=== PATIENT | male | born 1985 | race Caucasian/White ===

== ENCOUNTER 2017-09-23 18:39 | Inpatient (IN) ==
[2017-09-23] MEDS ORDERED: ACETAMINOPHEN 500 MG TABLET ONE (19:41)
[2017-09-23] MEDS ORDERED: ACETAMINOPHEN 500 MG TABLET PO STA (19:44)
[2017-09-23] MEDS ORDERED: SODIUM CHLORIDE 0.9% 1,000 ML IV STA (20:05)
[2017-09-23] MEDS ORDERED: ONDANSETRON 4 MG/2 ML VIAL IV STA (20:05)
[2017-09-23 21:01] LABS: Hemoglobin 12.1 GM/DL (14.0-18.0)
[2017-09-23 21:12] LABS: Hematocrit 34.5 VOL% (42.0-52.0); Immature Granulocytes % 2.7 %; Immature Granulocytes Absolute 0.03 #; Lymphocytes # 0.6 10*3/uL (1.4-4.0); Lymphocytes % 52.7 % (21.2-54.2); Mean Corpuscular HGB Conc 35.1 GM/DL (32-36); Mean Corpuscular Hemoglobin 30 PG (27-34); Mean Corpuscular Volume 84.8 FL (87-102); Mean Platelet Volume 10.6 FL (9.6-12.0); Monocytes # 0.5 10*3/uL (0.11-0.8); Monocytes % 42.7 % (1.7-12.7); Neutrophils % 1.9 % (38.7-73.9); Red Blood Count 4.07 MC/CUMM (3.8-5.5); Red Cell Distribution Width 11.3 % (9.3-17.3)
[2017-09-23 21:14] LABS: Platelet Count 123 T/CUMM (130-400); White Blood Count 1.1 T/CUMM (4-12)
[2017-09-23 21:16] LABS: INR 1.2; PT Patient Result 12.6 SECS; Partial Thromboplastin Time 32.1 SECS (0-40)
[2017-09-23 21:23] LABS: Albumin 3.8 G/DL (3.4-5.0); Bilirubin,Total 0.5 MG/DL (0.2-1.0); Calcium 8.9 MG/DL (8.5-10.1); Lactic Acid 0.9 MMOL/L (0.4-2.0); Osmolality,Calculated 274.5 MOS/KG (273-304); Potassium 3.5 MMOL/L (3.5-5.1); Total Protein 7.3 G/DL (6.4-8.3)
[2017-09-23 21:25] LABS: Troponin I Only 0.073 NG/ML (0.00-0.045)
[2017-09-23 21:27] LABS: Apearance,Urine CLEAR (Clear); Bacteria,Urine Occasional /HPF (Few); Bilirubin,Urine Negative (Negative); Blood, Urine Small mg/dL (Negative); Glucose,Urine (UA) Negative (Negative); Ketones,Urine Negative (Negative); Mucus,Urine Occasional /LPF (Occasional); Nitrite,Urine Negative (Negative); Protein,Urine 30 MG/DL; RBC,Urine 3 /HPF (0-4); Urine Color Yellow (Yellow); Urine Specific Gravity 1.016 (1.001-1.035); Urine Urobilinogen < 2.0 EU/DL (0.2-1.0); WBC,Urine 1 /HPF (0-6)
[2017-09-23 21:38] LABS: Giant Platelets Few; Platelet Estimate Decreased; Total Cells Counted 100
[2017-09-23 21:39] LABS: Hypochromasia 2+
[2017-09-23 21:40] LABS: Atypical Lymphocytes 2+; Reactive Lymphocytes 2+
[2017-09-23 21:41] LABS: Anisocytosis Slight; Microcytosis Slight; Ovalocytes Few
[2017-09-24] MEDS ORDERED: MORPHINE 4 MG/1 ML VIAL IV PRN (05:21)
[2017-09-24] MEDS ORDERED: ONDANSETRON 4 MG/2 ML VIAL IV PRN ×2 (05:21→11:49)
[2017-09-24] MEDS ORDERED: ACETAMINOPHEN 325 MG TABLET PO PRN (05:21)
[2017-09-24] MEDS: SODIUM CHLORIDE 0.9% 1,000 ML IV SCH ×3 (06:22→15:09)
[2017-09-24] MEDS: CEFEPIME 2,000 MG in SYRINGE 1 EACH IV SCH ×3 (06:45→22:00)
[2017-09-24 07:23] LABS: Band Neutrophils 0 % (0-10); Lymphocytes 40 % (20-55); Segmented Neutrophils 6 % (50-85)
[2017-09-24] MEDS: PANTOPRAZOLE 40 MG TABLET PO SCH (08:40)
[2017-09-24] MEDS: FILGRASTIM-SNDZ 480 MCG/0.8 ML SYRINGE SUBCUT SCH (09:30)
[2017-09-24] MEDS ORDERED: MYLANTA/LIDO VISC/DIPH 300 ML BOTTLE SWISH/SWAL PRN (09:35)
[2017-09-24] MEDS ORDERED: chlorproMAZINE 25 MG TABLET PO PRN (11:49)
[2017-09-24] MEDS ORDERED: ALUMINUM/MAGNES/SIMETH MAX STR 30 ML UDCUP PO PRN (11:49)
[2017-09-24] MEDS ORDERED: guaiFENesin 200 MG/10 ML UDCUP PO PRN (11:49)
[2017-09-24] MEDS ORDERED: chlorproMAZINE INJ 25 MG in SODIUM CHLORIDE 0.9% 100 ML IV PRN (11:49)
[2017-09-24] MEDS ORDERED: LACTULOSE 20 GM/30 ML UDCUP PO PRN (11:49)
[2017-09-24] MEDS ORDERED: BENZTROPINE 2 MG/2 ML AMP IV PRN (11:49)
[2017-09-24] MEDS ORDERED: ALPRAZolam 0.25 MG TABLET PO PRN (11:49)
[2017-09-24] MEDS ORDERED: diphenhydrAMINE CAP 25 MG CAPSULE PO PRN (11:49)
[2017-09-24] MEDS ORDERED: MYLANTA/LIDO VISC 2:1 300 ML BOTTLE SWISH/SWAL PRN (11:49)
[2017-09-24] MEDS ORDERED: TEMAZEPAM 7.5 MG CAPSULE PO PRN (11:49)
[2017-09-24] MEDS ORDERED: MYLANTA/LIDO VISC 2:1 300 ML BOTTLE SWISH/SPIT PRN (11:49)
[2017-09-24] MEDS ORDERED: traMADol 50 MG TABLET PO PRN (11:49)
[2017-09-24] MEDS ORDERED: LOPERAMIDE 2 MG CAPSULE PO PRN ×2 (11:49)
[2017-09-24] MEDS ORDERED: MAGNESIUM HYDROXIDE SUSP 30 ML UDCUP PO PRN (11:49)
[2017-09-24] MEDS ORDERED: chlorproMAZINE INJ 50 MG in SODIUM CHLORIDE 0.9% 100 ML IV PRN (11:49)
[2017-09-24] MEDS ORDERED: PROMETHAZINE INJ 25 MG in SODIUM CHLORIDE 0.9% 50 ML IV PRN (11:49)
[2017-09-24] MEDS: ACETAMINOPHEN 325 MG TABLET PO PRN ×2 (12:00→21:57)
[2017-09-25] MEDS: SODIUM CHLORIDE 0.9% 1,000 ML IV SCH ×5 (00:26→17:44)
[2017-09-25] MEDS: CEFEPIME 2,000 MG in SYRINGE 1 EACH IV SCH ×3 (05:42→22:15)
[2017-09-25 06:20] LABS: Basophils % 1.1 % (0.0-0.8); Eosinophils % 0.4 % (0.00-10.9); Hematocrit 32.9 VOL% (42.0-52.0); Hemoglobin 11.6 GM/DL (14.0-18.0); Immature Granulocytes Absolute 0.08 #; Lymphocytes # 0.7 10*3/uL (1.4-4.0); Lymphocytes % 26.2 % (21.2-54.2); Mean Corpuscular HGB Conc 35.3 GM/DL (32-36); Mean Corpuscular Hemoglobin 30 PG (27-34); Mean Corpuscular Volume 83.9 FL (87-102); Mean Platelet Volume 10.4 FL (9.6-12.0); Monocytes # 0.9 10*3/uL (0.11-0.8); Monocytes % 33.1 % (1.7-12.7); NRBC # 0.02 10*3/uL; Neutrophils % 36.2 % (38.7-73.9); Platelet Count 107 T/CUMM (130-400); Red Blood Count 3.92 MC/CUMM (3.8-5.5); Red Cell Distribution Width 11.8 % (9.3-17.3); White Blood Count 2.6 T/CUMM (4-12)
[2017-09-25 06:43] LABS: Calcium 8.5 MG/DL (8.5-10.1); Potassium 3.8 MMOL/L (3.5-5.1)
[2017-09-25 06:53] LABS: Atypical Lymphocytes Moderate; Band Neutrophils 11 % (0-10); Eosinophils 1 % (0-10); Hypochromasia Slight; Lymphocytes 35 % (20-55); Platelet Estimate Decreased; Segmented Neutrophils 13 % (50-85); Total Cells Counted 100
[2017-09-25] MEDS: PANTOPRAZOLE 40 MG TABLET PO SCH (08:48)
[2017-09-25] MEDS: FILGRASTIM-SNDZ 480 MCG/0.8 ML SYRINGE SUBCUT SCH (08:48)
[2017-09-26] MEDS: SODIUM CHLORIDE 0.9% 1,000 ML IV SCH ×3 (01:54→13:14)
[2017-09-26 04:32] LABS: Basophils % 0.3 % (0.0-0.8); Eosinophils % 0.4 % (0.00-10.9); Hematocrit 31.8 VOL% (42.0-52.0); Hemoglobin 10.9 GM/DL (14.0-18.0); Immature Granulocytes % 7.2 %; Lymphocytes # 1.1 10*3/uL (1.4-4.0); Lymphocytes % 15.3 % (21.2-54.2); Mean Corpuscular HGB Conc 34.3 GM/DL (32-36); Mean Corpuscular Hemoglobin 30 PG (27-34); Mean Corpuscular Volume 86.4 FL (87-102); Mean Platelet Volume 10.4 FL (9.6-12.0); Monocytes # 1.2 10*3/uL (0.11-0.8); Monocytes % 17.6 % (1.7-12.7); NRBC # 0.03 10*3/uL; Neutrophils # 4.1 10*3/uL (1.4-7.4); Neutrophils % 59.2 % (38.7-73.9); Platelet Count 148 T/CUMM (130-400); Red Blood Count 3.68 MC/CUMM (3.8-5.5); White Blood Count 6.9 T/CUMM (4-12)
[2017-09-26 04:42] LABS: Calcium 8.1 MG/DL (8.5-10.1); Osmolality,Calculated 281.8 MOS/KG (273-304); Potassium 3.7 MMOL/L (3.5-5.1)
[2017-09-26 05:40] LABS: Band Neutrophils 6 % (0-10); Eosinophils 1 % (0-10); Lymphocytes 19 % (20-55); Platelet Estimate Normal; Segmented Neutrophils 62 % (50-85); Total Cells Counted 100
[2017-09-26] MEDS: CEFEPIME 2,000 MG in SYRINGE 1 EACH IV SCH ×2 (05:40→14:55)
[2017-09-26 05:41] LABS: Burr Cells Slight; Polychromasia Few
[2017-09-26] MEDS: PANTOPRAZOLE 40 MG TABLET PO SCH (08:40)
[2017-09-26] MEDS: FILGRASTIM-SNDZ 480 MCG/0.8 ML SYRINGE SUBCUT SCH (08:44)
[2017-09-26 12:11] VITALS: BP 106/62
== END 2017-09-26 15:38 | disposition home or self-care (01) | DRG 809 ==
LOC: N.EDINP 18:39 → N.ED 18:39 → N.4E 09-24 04:44 → SUATTDRO 09-25 14:45
PROVIDERS: ADMIT Internal Medicine; ATTEND Internal Medicine Infectious Disease

== ENCOUNTER 2017-10-15 21:06 | Inpatient (IN) ==
[2017-10-15] MEDS ORDERED: cefTRIAXone 1,000 MG in SODIUM CHLORIDE 0.9% 100 ML IV STA (22:11)
[2017-10-15] MEDS ORDERED: SODIUM CHLORIDE 0.9% 500 ML IV STA (22:11)
[2017-10-15] MEDS ORDERED: ACETAMINOPHEN 500 MG TABLET PO STA (22:11)
[2017-10-15 23:05] LABS: Basophils % 3.3 % (0.0-0.8); Eosinophils % 1.7 % (0.00-10.9); Hematocrit 24.2 VOL% (42.0-52.0); Hemoglobin 8.5 GM/DL (14.0-18.0); Lymphocytes # 0.4 10*3/uL (1.4-4.0); Lymphocytes % 61.7 % (21.2-54.2); Mean Corpuscular HGB Conc 35.1 GM/DL (32-36); Mean Corpuscular Hemoglobin 31 PG (27-34); Mean Corpuscular Volume 86.7 FL (87-102); Mean Platelet Volume 11.4 FL (9.6-12.0); Monocytes # 0.1 10*3/uL (0.11-0.8); Monocytes % 21.7 % (1.7-12.7); Neutrophils # 0.1 10*3/uL (1.4-7.4); Neutrophils % 11.6 % (38.7-73.9); Platelet Count 85 T/CUMM (130-400); Red Blood Count 2.79 MC/CUMM (3.8-5.5); Red Cell Distribution Width 12.5 % (9.3-17.3)
[2017-10-15 23:09] LABS: White Blood Count 0.6 T/CUMM (4-12)
[2017-10-15 23:11] LABS: INR 1.1
[2017-10-15 23:40] LABS: Albumin 3.9 G/DL (3.4-5.0); Bilirubin,Total 1.2 MG/DL (0.2-1.0); Calcium 8.8 MG/DL (8.5-10.1); Osmolality,Calculated 269.1 MOS/KG (273-304); Potassium 3.9 MMOL/L (3.5-5.1); Total Protein 7.5 G/DL (6.4-8.3)
[2017-10-15 23:53] LABS: Apearance,Urine CLEAR (Clear); Bilirubin,Urine Negative (Negative); Blood, Urine Negative (Negative); Glucose,Urine (UA) Negative (Negative); Ketones,Urine Negative (Negative); Nitrite,Urine Negative (Negative); Protein,Urine Negative; Urine Color Straw (Yellow); Urine Specific Gravity 1.005 (1.001-1.035); Urine Urobilinogen < 2.0 EU/DL (0.2-1.0); WBC,Urine <1 /HPF (0-6)
[2017-10-16] MEDS ORDERED: FILGRASTIM-SNDZ 480 MCG/0.8 ML SYRINGE SUBCUT ONE (00:21)
[2017-10-16] MEDS ORDERED: LEVOFLOXACIN INJ 500 MG in PREMIX 1 EACH IV STA (00:21)
[2017-10-16] MEDS ORDERED: FLUCONAZOLE INJ 100 MG in IV BAG 1 EACH IV ONE (00:21)
[2017-10-16] MEDS ORDERED: ALPRAZolam 0.25 MG TABLET PO PRN ×2 (01:10)
[2017-10-16] MEDS ORDERED: diphenhydrAMINE CAP 25 MG CAPSULE PO PRN (01:10)
[2017-10-16] MEDS ORDERED: MYLANTA/LIDO VISC 2:1 300 ML BOTTLE SWISH/SWAL PRN (01:10)
[2017-10-16] MEDS ORDERED: PROMETHAZINE 25 MG TABLET PO PRN (01:10)
[2017-10-16] MEDS ORDERED: ALUMINUM/MAGNES/SIMETH MAX STR 30 ML UDCUP PO PRN (01:10)
[2017-10-16] MEDS ORDERED: guaiFENesin 200 MG/10 ML UDCUP PO PRN (01:10)
[2017-10-16] MEDS ORDERED: PROMETHAZINE INJ 25 MG in SODIUM CHLORIDE 0.9% 50 ML IV PRN (01:10)
[2017-10-16] MEDS ORDERED: TEMAZEPAM 7.5 MG CAPSULE PO PRN (01:10)
[2017-10-16] MEDS ORDERED: LACTULOSE 20 GM/30 ML UDCUP PO PRN (01:10)
[2017-10-16] MEDS ORDERED: ONDANSETRON 4 MG TABLET PO PRN (01:10)
[2017-10-16] MEDS ORDERED: MAGNESIUM HYDROXIDE SUSP 30 ML UDCUP PO PRN (01:10)
[2017-10-16] MEDS ORDERED: traMADol 50 MG TABLET PO PRN (01:10)
[2017-10-16] MEDS ORDERED: ONDANSETRON 4 MG/2 ML VIAL IV PRN (01:10)
[2017-10-16] MEDS: AMOXICILLIN/CLAV 500 MG TABLET PO SCH ×2 (01:47→09:24)
[2017-10-16] MEDS: SODIUM CHLORIDE 0.9% 1,000 ML IV SCH ×3 (01:48→23:58)
[2017-10-16] MEDS: FLUCONAZOLE INJ 100 MG in IV BAG 1 EACH IV SCH (02:01)
[2017-10-16 02:04] LABS: Lymphocytes 57 % (20-55); Segmented Neutrophils 10 % (50-85)
[2017-10-16 02:05] LABS: Microcytosis 2+; Ovalocytes 2+
[2017-10-16 02:06] LABS: Hypochromasia 1+; Platelet Estimate Decreased
[2017-10-16 02:07] LABS: Total Cells Counted 101
[2017-10-16 02:17] LABS: Basophils % 2.1 % (0.0-0.8); Eosinophils % 2.1 % (0.00-10.9); Hematocrit 25.9 VOL% (42.0-52.0); Hemoglobin 9.3 GM/DL (14.0-18.0); Lymphocytes # 0.3 10*3/uL (1.4-4.0); Lymphocytes % 68.1 % (21.2-54.2); Mean Corpuscular HGB Conc 35.9 GM/DL (32-36); Mean Corpuscular Hemoglobin 32 PG (27-34); Mean Corpuscular Volume 88.4 FL (87-102); Mean Platelet Volume 11.2 FL (9.6-12.0); Monocytes # 0.1 10*3/uL (0.11-0.8); Monocytes % 19.1 % (1.7-12.7); Neutrophils % 8.6 % (38.7-73.9); Red Blood Count 2.93 MC/CUMM (3.8-5.5); Red Cell Distribution Width 12.5 % (9.3-17.3)
[2017-10-16 02:20] LABS: Platelet Count 66 T/CUMM (130-400)
[2017-10-16 02:21] LABS: White Blood Count 0.5 T/CUMM (4-12)
[2017-10-16 02:45] LABS: Albumin 3.5 G/DL (3.4-5.0); Bilirubin,Total 0.8 MG/DL (0.2-1.0); Calcium 8.2 MG/DL (8.5-10.1); Osmolality,Calculated 271.8 MOS/KG (273-304); Potassium 3.9 MMOL/L (3.5-5.1)
[2017-10-16 02:55] LABS: Uric Acid 4.7 MG/DL (3.5-7.2)
[2017-10-16] MEDS: ACETAMINOPHEN 325 MG TABLET PO PRN ×3 (07:43→17:52)
[2017-10-16 08:11] LABS: Hypochromasia Slight; Lymphocytes 74 % (20-55); Microcytosis Slight; Platelet Estimate Decreased; Promyelocytes 2 %; Segmented Neutrophils 8 % (50-85); Total Cells Counted 100
[2017-10-16] MEDS ORDERED: GRAPE SEED PO SCH (09:00)
[2017-10-16] MEDS ORDERED: [UNRECOGNIZED DRUG - OTHER] PO SCH (09:00)
[2017-10-16] MEDS ORDERED: NYSTATIN 500,000 UNIT/5 ML UDCUP SWISH/SWAL SCH (09:00)
[2017-10-16] MEDS ORDERED: CELERY PO SCH (09:00)
[2017-10-16] MEDS ORDERED: Cinnamon Bark [Cinnamon] 500 MG PO SCH (09:00)
[2017-10-16] MEDS ORDERED: SOURCHERRY PO SCH (09:00)
[2017-10-16] MEDS: MULTIVITAMIN (CENTRUM) TABLET PO SCH (09:24)
[2017-10-16] MEDS: FILGRASTIM-SNDZ 480 MCG/0.8 ML SYRINGE SUBCUT SCH (09:25)
[2017-10-16] MEDS ORDERED: SODIUM CHLORIDE 0.9% 1,000 ML IV ONE (09:43)
[2017-10-16] MEDS: NYSTATIN 500,000 UNIT/5 ML UDCUP SWISH/SWAL SCH ×4 (10:51→20:09)
[2017-10-16] MEDS: CEFEPIME 2,000 MG in SYRINGE 1 EACH IV SCH ×2 (12:05→17:47)
[2017-10-16] MEDS: ACYCLOVIR INJ 1,000 MG in SODIUM CHLORIDE 0.9% 250 ML IV SCH ×2 (12:10→18:39)
[2017-10-16] MEDS: MYLANTA/LIDO VISC 2:1 300 ML BOTTLE SWISH/SPIT PRN (18:40)
[2017-10-16] MEDS ORDERED: cefTRIAXone 1,000 MG in SYRINGE 1 EACH IV SCH (22:00)
[2017-10-17] MEDS: FLUCONAZOLE INJ 100 MG in IV BAG 1 EACH IV SCH (01:47)
[2017-10-17] MEDS: CEFEPIME 2,000 MG in SYRINGE 1 EACH IV SCH ×3 (02:48→18:35)
[2017-10-17] MEDS: ACYCLOVIR INJ 1,000 MG in SODIUM CHLORIDE 0.9% 250 ML IV SCH ×3 (03:08→18:35)
[2017-10-17] MEDS: MULTIVITAMIN (CENTRUM) TABLET PO SCH (08:40)
[2017-10-17] MEDS: NYSTATIN 500,000 UNIT/5 ML UDCUP SWISH/SWAL SCH ×4 (08:40→20:51)
[2017-10-17] MEDS: FILGRASTIM-SNDZ 480 MCG/0.8 ML SYRINGE SUBCUT SCH (08:41)
[2017-10-17] MEDS: SODIUM CHLORIDE 0.9% 1,000 ML IV SCH ×3 (08:43→16:51)
[2017-10-17] MEDS: MYLANTA/LIDO VISC 2:1 300 ML BOTTLE SWISH/SPIT PRN ×2 (08:45→13:06)
[2017-10-17 10:45] LABS: Basophils % 1.2 % (0.0-0.8); Hematocrit 26.7 VOL% (42.0-52.0); Hemoglobin 9.2 GM/DL (14.0-18.0); Immature Granulocytes % 2.5 %; Immature Granulocytes Absolute 0.02 #; Lymphocytes # 0.3 10*3/uL (1.4-4.0); Lymphocytes % 33.3 % (21.2-54.2); Mean Corpuscular HGB Conc 34.5 GM/DL (32-36); Mean Corpuscular Hemoglobin 30 PG (27-34); Mean Corpuscular Volume 85.6 FL (87-102); Mean Platelet Volume 11.3 FL (9.6-12.0); Monocytes # 0.2 10*3/uL (0.11-0.8); Monocytes % 28.4 % (1.7-12.7); Neutrophils # 0.3 10*3/uL (1.4-7.4); Neutrophils % 34.6 % (38.7-73.9); Platelet Count 41 T/CUMM (130-400); Red Blood Count 3.12 MC/CUMM (3.8-5.5); Red Cell Distribution Width 12.5 % (9.3-17.3)
[2017-10-17 10:49] LABS: White Blood Count 0.8 T/CUMM (4-12)
[2017-10-17 11:06] LABS: Calcium 8.7 MG/DL (8.5-10.1); Potassium 3.6 MMOL/L (3.5-5.1)
[2017-10-17] MEDS ORDERED: IBUPROFEN 200 MG TABLET PO PRN (13:01)
[2017-10-17 13:28] LABS: Band Neutrophils 17 % (0-10); Hypochromasia 1+; Lymphocytes 40 % (20-55); Segmented Neutrophils 13 % (50-85); Total Cells Counted 100
[2017-10-17 13:29] LABS: Platelet Estimate Decreased
[2017-10-17] MEDS: VANCOMYCIN INJ 1,500 MG in SODIUM CHLORIDE 0.9% 500 ML IV SCH ×2 (14:23→20:51)
[2017-10-18] MEDS: CEFEPIME 2,000 MG in SYRINGE 1 EACH IV SCH ×3 (03:17→18:38)
[2017-10-18] MEDS: FLUCONAZOLE INJ 100 MG in IV BAG 1 EACH IV SCH (03:19)
[2017-10-18] MEDS: ACYCLOVIR INJ 1,000 MG in SODIUM CHLORIDE 0.9% 250 ML IV SCH ×3 (04:00→18:38)
[2017-10-18] MEDS: SODIUM CHLORIDE 0.9% 1,000 ML IV SCH ×2 (04:01→08:30)
[2017-10-18 04:45] LABS: Basophils % 0.9 % (0.0-0.8); Eosinophils % 0.9 % (0.00-10.9); Hematocrit 24.6 VOL% (42.0-52.0); Hemoglobin 8.4 GM/DL (14.0-18.0); Immature Granulocytes % 12.7 %; Immature Granulocytes Absolute 0.28 #; Lymphocytes # 0.4 10*3/uL (1.4-4.0); Mean Corpuscular HGB Conc 34.1 GM/DL (32-36); Mean Corpuscular Hemoglobin 29 PG (27-34); Mean Corpuscular Volume 85.7 FL (87-102); Mean Platelet Volume 12.1 FL (9.6-12.0); Monocytes # 0.5 10*3/uL (0.11-0.8); Monocytes % 20.9 % (1.7-12.7); NRBC # 0.04 10*3/uL; Neutrophils % 44.6 % (38.7-73.9); Red Blood Count 2.87 MC/CUMM (3.8-5.5); Red Cell Distribution Width 12.6 % (9.3-17.3); White Blood Count 2.2 T/CUMM (4-12)
[2017-10-18 04:48] LABS: Platelet Count 31 T/CUMM (130-400)
[2017-10-18 05:08] LABS: Calcium 8.3 MG/DL (8.5-10.1); Osmolality,Calculated 274.4 MOS/KG (273-304); Potassium 3.7 MMOL/L (3.5-5.1)
[2017-10-18 05:17] LABS: Band Neutrophils 8 % (0-10); Eosinophils 1 % (0-10); Hypochromasia 1+; Lymphocytes 21 % (20-55); Nucleated Red Blood Cells 1 (0-5); Ovalocytes Slight; Platelet Estimate Decreased; Segmented Neutrophils 48 % (50-85); Total Cells Counted 100
[2017-10-18 05:18] LABS: Atypical Lymphocytes Few
[2017-10-18] MEDS: VANCOMYCIN INJ 1,500 MG in SODIUM CHLORIDE 0.9% 500 ML IV SCH ×3 (06:07→21:26)
[2017-10-18] MEDS: FILGRASTIM-SNDZ 480 MCG/0.8 ML SYRINGE SUBCUT SCH (09:02)
[2017-10-18] MEDS: MULTIVITAMIN (CENTRUM) TABLET PO SCH (09:03)
[2017-10-18] MEDS: NYSTATIN 500,000 UNIT/5 ML UDCUP SWISH/SWAL SCH ×4 (09:04→21:26)
[2017-10-19] MEDS: CEFEPIME 2,000 MG in SYRINGE 1 EACH IV SCH (02:06)
[2017-10-19] MEDS: FLUCONAZOLE INJ 100 MG in IV BAG 1 EACH IV SCH (02:10)
[2017-10-19] MEDS: ACYCLOVIR INJ 1,000 MG in SODIUM CHLORIDE 0.9% 250 ML IV SCH ×3 (03:25→21:29)
[2017-10-19 04:03] LABS: Basophils # 0.1 10*3/uL (0.0-0.2); Basophils % 1.2 % (0.0-0.8); Eosinophils % 0.5 % (0.00-10.9); Hematocrit 24.7 VOL% (42.0-52.0); Hemoglobin 8.7 GM/DL (14.0-18.0); Immature Granulocytes % 20.6 %; Immature Granulocytes Absolute 1.52 #; Lymphocytes # 0.6 10*3/uL (1.4-4.0); Lymphocytes % 8.4 % (21.2-54.2); Mean Corpuscular HGB Conc 35.2 GM/DL (32-36); Mean Corpuscular Hemoglobin 30 PG (27-34); Mean Corpuscular Volume 83.7 FL (87-102); Mean Platelet Volume 11.8 FL (9.6-12.0); Monocytes # 0.9 10*3/uL (0.11-0.8); Monocytes % 12.2 % (1.7-12.7); NRBC # 0.06 10*3/uL; Neutrophils # 4.2 10*3/uL (1.4-7.4); Neutrophils % 57.1 % (38.7-73.9); Red Blood Count 2.95 MC/CUMM (3.8-5.5); Red Cell Distribution Width 12.8 % (9.3-17.3); White Blood Count 7.4 T/CUMM (4-12)
[2017-10-19 04:11] LABS: Platelet Count 35 T/CUMM (130-400)
[2017-10-19 04:52] LABS: Band Neutrophils 20 % (0-10); Lymphocytes 12 % (20-55); Metamyelocytes 3 %; Myelocytes 1 %; Nucleated Red Blood Cells 1 (0-5); Platelet Estimate Decreased; Polychromasia Slight; Segmented Neutrophils 59 % (50-85); Total Cells Counted 100; Toxic Granulation 1+
[2017-10-19 05:51] LABS: Potassium 3.8 MMOL/L (3.5-5.1)
[2017-10-19 05:53] LABS: Calcium 8.6 MG/DL (8.5-10.1)
[2017-10-19] MEDS: VANCOMYCIN INJ 1,500 MG in SODIUM CHLORIDE 0.9% 500 ML IV SCH ×2 (05:53→14:58)
[2017-10-19 05:54] LABS: Osmolality,Calculated 282.8 MOS/KG (273-304)
[2017-10-19] MEDS: SODIUM CHLORIDE 0.9% 1,000 ML IV SCH ×2 (09:07→21:35)
[2017-10-19] MEDS: MULTIVITAMIN (CENTRUM) TABLET PO SCH (09:16)
[2017-10-19] MEDS: NYSTATIN 500,000 UNIT/5 ML UDCUP SWISH/SWAL SCH ×4 (09:16→21:29)
[2017-10-20] MEDS: VANCOMYCIN INJ 1,500 MG in SODIUM CHLORIDE 0.9% 500 ML IV SCH ×3 (00:17→13:15)
[2017-10-20] MEDS: ACYCLOVIR INJ 1,000 MG in SODIUM CHLORIDE 0.9% 250 ML IV SCH ×2 (04:08→10:59)
[2017-10-20 06:26] LABS: Basophils # 0.1 10*3/uL (0.0-0.2); Basophils % 0.5 % (0.0-0.8); Eosinophils # 0.1 10*3/uL (0.0-0.87); Eosinophils % 0.6 % (0.00-10.9); Hematocrit 24.2 VOL% (42.0-52.0); Hemoglobin 8.3 GM/DL (14.0-18.0); Immature Granulocytes % 21.6 %; Immature Granulocytes Absolute 2.06 #; Lymphocytes # 0.7 10*3/uL (1.4-4.0); Mean Corpuscular HGB Conc 34.3 GM/DL (32-36); Mean Corpuscular Hemoglobin 30 PG (27-34); Mean Platelet Volume 11.7 FL (9.6-12.0); Monocytes # 0.9 10*3/uL (0.11-0.8); Monocytes % 9.9 % (1.7-12.7); NRBC # 0.05 10*3/uL; Neutrophils # 5.8 10*3/uL (1.4-7.4); Neutrophils % 60.4 % (38.7-73.9); Red Blood Count 2.75 MC/CUMM (3.8-5.5); Red Cell Distribution Width 13.3 % (9.3-17.3); White Blood Count 9.5 T/CUMM (4-12)
[2017-10-20 06:33] LABS: Platelet Count 37 T/CUMM (130-400)
[2017-10-20 06:48] LABS: Calcium 8.2 MG/DL (8.5-10.1); Osmolality,Calculated 286.6 MOS/KG (273-304); Potassium 3.4 MMOL/L (3.5-5.1)
[2017-10-20 07:09] LABS: Anisocytosis Slight; Band Neutrophils 13 % (0-10); Lymphocytes 13 % (20-55); Platelet Estimate Decreased; Segmented Neutrophils 62 % (50-85); Total Cells Counted 100
[2017-10-20 07:10] LABS: Microcytosis Slight
[2017-10-20] MEDS: SODIUM CHLORIDE 0.9% 1,000 ML IV SCH (07:20)
[2017-10-20] MEDS: MULTIVITAMIN (CENTRUM) TABLET PO SCH (08:04)
[2017-10-20] MEDS: NYSTATIN 500,000 UNIT/5 ML UDCUP SWISH/SWAL SCH ×4 (08:05→21:02)
[2017-10-20] MEDS: SODIUM CHLOR 0.45% KCL 20 MEQ 20 MEQ/1,000 ML BAG IV SCH (08:40)
[2017-10-20] MEDS: cefTRIAXone 2,000 MG in SYRINGE 1 EACH IV SCH (16:35)
[2017-10-20] MEDS: valACYclovir 500 MG TABLET PO SCH (21:02)
[2017-10-21 05:24] LABS: Basophils % 0.5 % (0.0-0.8); Eosinophils % 0.6 % (0.00-10.9); Hemoglobin 8.5 GM/DL (14.0-18.0); Immature Granulocytes % 18.9 %; Immature Granulocytes Absolute 1.21 #; Lymphocytes # 0.8 10*3/uL (1.4-4.0); Lymphocytes % 11.9 % (21.2-54.2); Mean Corpuscular HGB Conc 35.4 GM/DL (32-36); Mean Corpuscular Hemoglobin 31 PG (27-34); Mean Corpuscular Volume 88.6 FL (87-102); Mean Platelet Volume 11.8 FL (9.6-12.0); Monocytes # 0.6 10*3/uL (0.11-0.8); NRBC # 0.04 10*3/uL; Neutrophils # 3.7 10*3/uL (1.4-7.4); Neutrophils % 58.1 % (38.7-73.9); Platelet Count 40 T/CUMM (130-400); Red Blood Count 2.71 MC/CUMM (3.8-5.5); Red Cell Distribution Width 13.6 % (9.3-17.3); White Blood Count 6.4 T/CUMM (4-12)
[2017-10-21 05:48] LABS: Band Neutrophils 5 % (0-10); Eosinophils 1 % (0-10); Lymphocytes 11 % (20-55); Metamyelocytes 3 %; Myelocytes 1 %; Nucleated Red Blood Cells 1 (0-5); Segmented Neutrophils 69 % (50-85); Total Cells Counted 100
[2017-10-21 05:49] LABS: Hypochromasia Slight; Ovalocytes Slight; Platelet Estimate Decreased
[2017-10-21 05:50] LABS: Microcytosis Slight
[2017-10-21 05:51] LABS: Calcium 8.2 MG/DL (8.5-10.1); Osmolality,Calculated 284.6 MOS/KG (273-304); Potassium 3.7 MMOL/L (3.5-5.1)
[2017-10-21] MEDS: SODIUM CHLOR 0.45% KCL 20 MEQ 20 MEQ/1,000 ML BAG IV SCH (08:08)
[2017-10-21] MEDS: valACYclovir 500 MG TABLET PO SCH (08:08)
[2017-10-21] MEDS: NYSTATIN 500,000 UNIT/5 ML UDCUP SWISH/SWAL SCH ×2 (08:09→13:12)
[2017-10-21] MEDS: MULTIVITAMIN (CENTRUM) TABLET PO SCH (08:09)
[2017-10-21 12:19] VITALS: BP 107/59
[2017-10-21] MEDS ORDERED: HEPARIN LOCK FLUSH 500 UNIT/5 ML SYRINGE IV ONE (14:56)
[2017-10-21] MEDS: cefTRIAXone 2,000 MG in SYRINGE 1 EACH IV SCH (15:11)
== END 2017-10-21 15:40 | disposition home health service (06) | DRG 809 ==
LOC: N.ED 21:06 → N.EDINP 10-16 00:22 → N.4E 10-16 00:56
PROVIDERS: ADMIT Internal Medicine Hematology & Oncology; ATTEND Internal Medicine Hematology & Oncology

== ENCOUNTER 2018-01-14 06:24 | Inpatient (IN) ==
[2018-01-19 08:48] VITALS: BP 101/50
== END 2018-01-19 14:20 | disposition home or self-care (01) | DRG 810 ==
LOC: N.ED 06:24 → N.EDINP 06:24 → N.4E 09:52
PROVIDERS: ADMIT Internal Medicine Hematology & Oncology; ATTEND Internal Medicine Hematology & Oncology

== ENCOUNTER 2020-01-03 18:40 | Observation (INO) ==
[2020-01-03] MEDS ORDERED: HYDROmorphone 2 MG/1 ML VIAL IV STA (20:02)
[2020-01-03] MEDS ORDERED: ALUM/MAG/SIMETH/LIDO VISC 1:1 30 ML BOTTLE PO STA (20:02)
[2020-01-03] MEDS ORDERED: ONDANSETRON 4 MG/2 ML VIAL IV STA (20:02)
[2020-01-03] MEDS ORDERED: SODIUM CHLORIDE 0.9% 1,000 ML IV STA (20:02)
[2020-01-03] MEDS ORDERED: PANTOPRAZOLE 40 MG VIAL IV STA (20:02)
[2020-01-03 20:55] LABS: Basophils % 0.2 % (0.0-0.8); Eosinophils # 0.1 10*3/uL (0.0-0.87); Eosinophils % 1.2 % (0.00-10.9); Hematocrit 44.6 VOL% (42.0-52.0); Hemoglobin 15.1 GM/DL (14.0-18.0); Immature Granulocytes % 0.2 %; Immature Granulocytes Absolute 0.01 #; Lymphocytes # 1.1 10*3/uL (1.4-4.0); Lymphocytes % 21.8 % (21.2-54.2); Mean Corpuscular HGB Conc 33.9 GM/DL (32-36); Mean Corpuscular Volume 90.3 FL (87-102); Mean Platelet Volume 9.8 FL (9.6-12.0); Neutrophils % 67.6 % (38.7-73.9); Platelet Count 128 T/CUMM (130-400); Red Blood Count 4.94 MC/CUMM (3.8-5.5); Red Cell Distribution Width 12.6 % (9.3-17.3); White Blood Count 5.1 T/CUMM (4-12)
[2020-01-03 21:08] LABS: Albumin 4.1 G/DL (3.4-5.0); Bilirubin,Total 1.8 MG/DL (0.2-1.0); Calcium 9.6 MG/DL (8.5-10.1); Osmolality,Calculated 278.4 MOS/KG (273-304); Total Protein 6.9 G/DL (6.4-8.3)
[2020-01-03 21:24] LABS: Apearance,Urine CLEAR (Clear); Bilirubin,Urine Negative (Negative); Blood, Urine Negative (Negative); Glucose,Urine (UA) Negative (Negative); Ketones,Urine Negative (Negative); Mucus,Urine Occasional /LPF (Occasional); Nitrite,Urine Negative (Negative); Protein,Urine Negative; Squamous Epithelial Cell,Urine Occasional /HPF (0-10); Urine Color Yellow (Yellow); Urine Specific Gravity 1.018 (1.001-1.035); Urine Urobilinogen < 2.0 EU/DL (0.2-1.0)
[2020-01-03] MEDS ORDERED: ONDANSETRON 4 MG/2 ML VIAL IV PRN (23:25)
[2020-01-03] MEDS ORDERED: GLUCAGON 1 MG VIAL IM PRN (23:25)
[2020-01-03] MEDS ORDERED: DEXTROSE 50% 25 GM/50 ML VIAL IV PRN (23:25)
[2020-01-03] MEDS ORDERED: HYDROmorphone 2 MG/1 ML VIAL IV PRN (23:35)
[2020-01-04] MEDS: SODIUM CHLORIDE 0.9% 1,000 ML IV SCH ×2 (00:40→10:45)
[2020-01-04 06:58] LABS: Basophils % 0.4 % (0.0-0.8); Eosinophils # 0.1 10*3/uL (0.0-0.87); Eosinophils % 2.2 % (0.00-10.9); Hematocrit 40.9 VOL% (42.0-52.0); Hemoglobin 13.8 GM/DL (14.0-18.0); Immature Granulocytes % 0.4 %; Immature Granulocytes Absolute 0.01 #; Lymphocytes # 0.8 10*3/uL (1.4-4.0); Lymphocytes % 29.9 % (21.2-54.2); Mean Corpuscular HGB Conc 33.7 GM/DL (32-36); Mean Corpuscular Volume 91.1 FL (87-102); Mean Platelet Volume 10.2 FL (9.6-12.0); Monocytes % 11.3 % (1.7-12.7); Neutrophils % 55.8 % (38.7-73.9); Platelet Count 106 T/CUMM (130-400); Red Blood Count 4.49 MC/CUMM (3.8-5.5); Red Cell Distribution Width 12.8 % (9.3-17.3); White Blood Count 2.7 T/CUMM (4-12)
[2020-01-04 07:18] LABS: Albumin 3.5 G/DL (3.4-5.0); Bilirubin,Total 0.8 MG/DL (0.2-1.0); Calcium 8.7 MG/DL (8.5-10.1); Osmolality,Calculated 279.3 MOS/KG (273-304); Total Protein 6.3 G/DL (6.4-8.3)
[2020-01-04 07:20] LABS: Hypochromasia Slight; Microcytosis Slight
[2020-01-04 10:49] LABS: Hepatitis B Core IgM Quant 0.23 Index; Hepatitis B Surface Ag Quant < 0.10 Index; Hepatitis B Surface Ag Result Negative (Negative); Hepatitis C Virus Ab Quant 0.07 Index; Hepatitis C Virus Ab Result Negative (Negative)
[2020-01-04] MEDS: PANTOPRAZOLE 40 MG TABLET PO SCH (10:56)
[2020-01-05 07:15] LABS: Basophils % 0.4 % (0.0-0.8); Eosinophils % 1.5 % (0.00-10.9); Hematocrit 39.5 VOL% (42.0-52.0); Hemoglobin 13.3 GM/DL (14.0-18.0); Immature Granulocytes % 0.4 %; Immature Granulocytes Absolute 0.01 #; Lymphocytes # 0.8 10*3/uL (1.4-4.0); Lymphocytes % 29.4 % (21.2-54.2); Mean Corpuscular HGB Conc 33.7 GM/DL (32-36); Mean Corpuscular Volume 91.9 FL (87-102); Mean Platelet Volume 10.3 FL (9.6-12.0); Monocytes % 13.7 % (1.7-12.7); Neutrophils % 54.6 % (38.7-73.9); Platelet Count 99 T/CUMM (130-400); Red Cell Distribution Width 12.5 % (9.3-17.3); White Blood Count 2.6 T/CUMM (4-12)
[2020-01-05 07:30] LABS: Albumin 3.5 G/DL (3.4-5.0); Bilirubin,Total 0.6 MG/DL (0.2-1.0); Calcium 8.9 MG/DL (8.5-10.1); Osmolality,Calculated 280.1 MOS/KG (273-304); Total Protein 6.3 G/DL (6.4-8.3)
[2020-01-05 07:32] LABS: Platelet Estimate Decreased
[2020-01-05] MEDS: PANTOPRAZOLE 40 MG TABLET PO SCH (08:26)
[2020-01-05] MEDS: SODIUM CHLORIDE 0.9% 1,000 ML IV SCH (08:29)
[2020-01-05 11:42] VITALS: BP 112/56
== END 2020-01-05 11:50 | disposition home or self-care (01) ==
LOC: EDBD → EDUNIT# → N.ED 18:40 → N.EDINP 18:40 → N.3E 01-04 01:45
PROVIDERS: ADMIT Internal Medicine; ATTEND Internal Medicine

== ENCOUNTER 2022-07-09 02:49 | Observation (INO) ==
[2022-07-09 04:15] LABS: Basophils % 0.2 % (0.0-0.8); Eosinophils # 0.1 10*3/uL (0.0-0.87); Eosinophils % 0.9 % (0.00-10.9); Hematocrit 44.4 VOL% (42.0-52.0); Hemoglobin 14.8 GM/DL (14.0-18.0); Immature Granulocytes % 0.4 %; Immature Granulocytes Absolute 0.04 #; Lymphocytes # 1.9 10*3/uL (1.4-4.0); Lymphocytes % 20.5 % (21.2-54.2); Mean Corpuscular HGB Conc 33.3 GM/DL (32-36); Mean Corpuscular Volume 90.2 FL (87-102); Mean Platelet Volume 10.4 FL (9.6-12.0); Monocytes # 0.7 10*3/uL (0.11-0.8); Platelet Count 171 T/CUMM (130-400); Red Blood Count 4.92 MC/CUMM (3.8-5.5); Red Cell Distribution Width 13.2 % (9.3-17.3); White Blood Count 9.25 T/CUMM (4-12)
[2022-07-09] MEDS ORDERED: ONDANSETRON 4 MG/2 ML VIAL IV STA (04:27)
[2022-07-09] MEDS ORDERED: PANTOPRAZOLE 40 MG VIAL IV STA (04:27)
[2022-07-09] MEDS ORDERED: SODIUM CHLORIDE 0.9% 500 ML IV STA (04:27)
[2022-07-09] MEDS ORDERED: HYDROmorphone 1 MG/1 ML SYRINGE IV STA (04:27)
[2022-07-09 04:29] LABS: Bilirubin,Total 0.8 MG/DL (0.20-1.00); Calcium 9.4 MG/DL (8.5-10.1); Potassium 3.7 MMOL/L (3.5-5.1); Total Protein 6.8 G/DL (6.4-8.2)
[2022-07-09] MEDS ORDERED: hydrALAZINE 20 MG/1 ML VIAL IV PRN (07:47)
[2022-07-09] MEDS ORDERED: ONDANSETRON 4 MG/2 ML VIAL IV PRN (07:47)
[2022-07-09] MEDS ORDERED: MORPHINE 2 MG/1 ML SYRINGE IV PRN (07:47)
[2022-07-09] MEDS ORDERED: SODIUM CHLORIDE 0.9% 1,000 ML IV SCH (08:00)
[2022-07-09 08:08] LABS: Risk Ratio 3.61; VLDL Cholesterol 16.6 MG/DL
[2022-07-09 09:00] LABS: Hepatitis B Core IgM Quant 0.07 Index; Hepatitis B Surface Ag Quant < 0.10 Index; Hepatitis B Surface Ag Result Non-Reactive (NonReactive); Hepatitis C Virus Ab Quant < 0.02 Index; Hepatitis C Virus Ab Result Non-Reactive (NonReactive)
[2022-07-09] MEDS ORDERED: PANTOPRAZOLE 40 MG TABLET PO SCH (09:00)
[2022-07-09 09:32] LABS: Bilirubin,Urine Small mg/dL (Negative); Blood, Urine Negative (Negative); Glucose,Urine (UA) Negative (Negative); Hyaline Casts,Urine 1 /LPF (0-3); Ketones,Urine Negative (Negative); Mucus,Urine Occasional /LPF (Occasional); Nitrite,Urine Negative (Negative); Protein,Urine Trace mg/dL (Negative); RBC,Urine 2 /HPF (0-4); Squamous Epithelial Cell,Urine Occasional /HPF (0-10); Urine Appearance Clear (Clear); Urine Color Dark Yellow (Yellow); Urine Specific Gravity 1.025 (1.001-1.035)
[2022-07-09 09:33] LABS: Barbiturates Screen,Urine Negative (Negative); Benzodiazepines Screen,Urine Negative (Negative); Cannabinoid Screen,Urine Negative (Negative); Opiate Screen,Urine Positive (Negative); Phencyclidine Screen,Urine Negative (Negative)
[2022-07-09 11:20] VITALS: BP 96/55
== END 2022-07-09 11:18 | disposition home or self-care (01) ==
LOC: N.ED 02:49 → N.EDINP 02:49
PROVIDERS: ADMIT Internal Medicine; ATTEND Internal Medicine